=== PATIENT | male | born 1995 | race Caucasian/White ===

== ENCOUNTER 2017-01-22 12:17 | Emergency (ER) | payer MEDICAID ==
[~2017-01-22] VITALS: Ht 175.3 cm; Wt 86.9 kg
[2017-01-22 12:35] VITALS: BP 129/84
[2017-01-22] MEDS ORDERED: LIDOCAINE HCL 1% 20ML VIAL (Pyxis) INJ MC ONE (17:00)
[2017-01-22] MEDS ORDERED: TETANUS, DIPHTHERIA, PERTUSSIS VAC/PF 0.5ML (>7YR OLD) IM ONE (17:00)
[2017-01-22] MEDS ORDERED: BACITRACIN ZINC OINT UDPKT TOP ONE (17:00)
== END 2017-01-22 18:30 | disposition home or self-care (01) ==
LOC: ER 14:16
DX: L02.414 Cutaneous abscess of left upper limb (principal); F17.200 Nicotine dependence, unspecified, uncomplicated; F12.10 Cannabis abuse, uncomplicated; F15.10 Other stimulant abuse, uncomplicated; Z88.6 Allergy status to analgesic agent; Z88.0 Allergy status to penicillin
CPT/HCPCS: 10060; 90471; 90715; 99283; J3490; X7700; Z7610

== ENCOUNTER 2022-01-14 12:02 | Emergency (ER) | payer MEDICAID ==
[~2022-01-14] VITALS: Ht 175.3 cm; Wt 122.0 kg
[2022-01-14 12:09] VITALS: BP 125/95
[2022-01-14] MEDS ORDERED: ZINC OXIDE 20% OINT 30GM TOP STA (15:01)
[2022-01-14] MEDS ORDERED: ZINC113C10 TP (15:08)
[2022-01-14] MEDS ORDERED: LORAZEPAM 1MG TABLET PO ONE (15:15)
== END 2022-01-14 15:40 | disposition home or self-care (01) ==
LOC: ER 13:50
DX: L25.9 Unspecified contact dermatitis, unspecified cause (principal); F15.129 Other stimulant abuse with intoxication, unspecified; R03.0 Elevated blood-pressure reading, without diagnosis of hypertension; M79.652 Pain in left thigh; M79.651 Pain in right thigh
CPT/HCPCS: 93005; 99283

== ENCOUNTER 2022-01-16 07:32 | Inpatient (IN) | payer MEDICAID, OTHER ==
[~2022-01-16] VITALS: Ht 177.8 cm; Wt 117.5 kg
[~2022-01-16 07:32] MED LIST: ZINC113C10 TP
[2022-01-16 08:15] LABS: MEAN CORPUSCULAR HEMOGLOBIN 31.4 pg (28.0-32.0); MEAN CORPUSCULAR VOLUME 90.5 fL (80.0-94.0); MEAN PLATELET VOLUME 10.6 fl (7.4-10.4); PLATELET 204 x1000/uL (130-400); RED BLOOD CELL COUNT 5.08 mill/uL (4.7-6.1); RED CELL DISTRIBUTION WIDTH 13.8 % (11.6-14.6)
[2022-01-16 08:34] LABS: CHLORIDE 87 mEq/L (98-107); ETHANOL BLOOD < 10 mg/dL
[2022-01-16 08:57] LABS: PLATELET ESTIMATE NORMAL
[2022-01-16] MEDS ORDERED: SODIUM CHLORIDE 0.9% 1,000 ML IV ONE (11:15)
[2022-01-16] MEDS ORDERED: SODIUM BICARBONATE 8.4% 1 MEQ/ML 50ML SYR IV NR (13:15)
[2022-01-16] MEDS ORDERED: ONDANSETRON HCL 4MG/2ML INJ IV PRN (13:30)
[2022-01-16 13:58] LABS: CLARITY URINE CLOUDY (CLEAR); COLOR URINE YELLOW (YELLOW); KETONES URINE 1+ (NEGATIVE); LEUKOCYTE ESTERASE URINE TRACE (NEGATIVE); NITRITE URINE NEGATIVE (NEGATIVE); OCCULT BLOOD URINE 3+ (NEGATIVE); PROTEIN URINE 2+ (NEGATIVE); SPECIFIC GRAVITY URINE 1.018 (1.005-1.030)
[2022-01-16 14:24] LABS: *AMPHETAMINES SCREEN URINE PRESUMTIVE POSITIVE (NEGATIVE)
[2022-01-16 14:25] LABS: *BARBITURATES SCREEN URINE NEGATIVE (NEGATIVE); *BENZODIAZEPINES SCREEN URINE NEGATIVE (NEGATIVE); *COCAINE SCREEN URINE NEGATIVE (NEGATIVE); METHADONE URINE SCREEN NEGATIVE (NEGATIVE); OPIATES URINE SCREEN NEGATIVE (NEGATIVE); PHENCYCLIDINE URINE SCREEN NEGATIVE (NEGATIVE)
[2022-01-16 14:26] LABS: CANNABINOID URINE SCREEN PRESUMTIVE POSITIVE (NEGATIVE)
[2022-01-16 14:37] LABS: BG BASE EXCESS -10.4 mmol/L (-2.0-2.0); BG DEOXYHEMOGLOBIN 1.8 % (0.0-5.0); BG FRACTION INSPIRED OXYGEN 21; BG HCO3 ACT 13.6 mmol/L (22.0-26.0); BG METHEMOGLOBIN 0.4 % (0.0-1.5); BG OXYGEN SATURATION 98.2 % (92.0-98.5); BG OXYHEMOGLOBIN 97.8 % (94.0-97.0); BG PCO2 26.2 mmHg (35.0-45.0); BG PH 7.333 (7.350-7.450); BG PO2 131.9 mmHg (75.0-100.0); BG SAMPLE SITE LEFT RADIAL; BG TOTAL HEMOGLOBIN 14.9 g/dL (12.0-18.0); BG VENT MODE ROOM AIR
[2022-01-16 16:00] VITALS: BP 134/71
[2022-01-16 17:15] VITALS: BP 134/71
[2022-01-16] MEDS ORDERED: VANCOMYCIN 1,750 MG in DEXT 5% WATER 500 ML IV NR (18:00)
[2022-01-16] MEDS: NYSTATIN POWDER 15GM TOP SCH (18:25)
[2022-01-16] MEDS: SODIUM BICARBONATE 150 MEQ in DEXTROSE 5% WATER 1,000 ML IV SCH (18:26)
[2022-01-16] MEDS: CEFEPIME 500 MG in DEXTROSE 5% WATER 50 ML IV SCH (18:49)
[2022-01-16 20:00] VITALS: BP 129/69
[2022-01-17] VITALS: BP 128/69
[2022-01-17] MEDS: SODIUM BICARBONATE 150 MEQ in DEXTROSE 5% WATER 1,000 ML IV SCH ×2 (03:32→17:19)
[2022-01-17 04:00] VITALS: BP 130/72
[2022-01-17 06:48] LABS: HEMATOCRIT. 39.8 % (42.0-52.0); HEMOGLOBIN. 13.8 g/dL (14.0-18.0); MEAN CORPUSCULAR HEMOGLOBIN 30.9 pg (28.0-32.0); MEAN CORPUSCULAR VOLUME 88.9 fL (80.0-94.0); MEAN PLATELET VOLUME 10.9 fl (7.4-10.4); PLATELET 196 x1000/uL (130-400); RED BLOOD CELL COUNT 4.47 mill/uL (4.7-6.1)
[2022-01-17 06:52] LABS: CHLORIDE 89 mEq/L (98-107)
[2022-01-17 06:59] LABS: PHOSPHORUS 4.3 mg/dL (2.5-4.9)
[2022-01-17 07:50] LABS: CREATINE KINASE 18043 IU/L (39-308)
[2022-01-17 07:59] VITALS: BP 133/68
[2022-01-17] MEDS: NYSTATIN POWDER 15GM TOP SCH ×3 (08:53→17:19)
[2022-01-17 12:27] VITALS: BP 137/74
[2022-01-17] MEDS: RISPERIDONE 1MG TABLET PO SCH ×2 (14:05→20:52)
[2022-01-17] MEDS: FLUOXETINE HCL 10 MG CAPSULE PO SCH (14:05)
[2022-01-17 15:25] VITALS: BP 115/67
[2022-01-17] MEDS: CEFEPIME 500 MG in DEXTROSE 5% WATER 50 ML IV SCH (17:19)
[2022-01-17 18:48] LABS: PLATELET ESTIMATE NORMAL
[2022-01-17 20:00] VITALS: BP 153/81
[2022-01-18] VITALS (7 sets, daily range): BP systolic 116–143; BP diastolic 67–82
[2022-01-18 00:02] LABS: SODIUM URINE RANDOM < 5 mEq/L
[2022-01-18] MEDS: SODIUM BICARBONATE 150 MEQ in DEXTROSE 5% WATER 1,000 ML IV SCH (03:41)
[2022-01-18 07:27] LABS: HEMATOCRIT. 37.3 % (42.0-52.0); HEMOGLOBIN. 13.2 g/dL (14.0-18.0); MEAN CORPUSCULAR HEMOGLOBIN 31.3 pg (28.0-32.0); MEAN CORPUSCULAR VOLUME 88.7 fL (80.0-94.0); MEAN PLATELET VOLUME 9.7 fl (7.4-10.4); PLATELET 175 x1000/uL (130-400); RED BLOOD CELL COUNT 4.21 mill/uL (4.7-6.1); RED CELL DISTRIBUTION WIDTH 13.7 % (11.6-14.6)
[2022-01-18 07:33] LABS: CHLORIDE 90 mEq/L (98-107)
[2022-01-18 07:49] LABS: PHOSPHORUS 1.8 mg/dL (2.5-4.9)
[2022-01-18] MEDS: FLUOXETINE HCL 10 MG CAPSULE PO SCH (09:01)
[2022-01-18] MEDS: RISPERIDONE 1MG TABLET PO SCH ×2 (09:01→21:17)
[2022-01-18] MEDS: NYSTATIN POWDER 15GM TOP SCH ×3 (09:08→17:26)
[2022-01-18] MEDS ORDERED: POTASSIUM PHOS,M-BASIC-D-BASIC 30 MMOL in SODIUM CHLORIDE 0.9% 500 ML IV NR (11:00)
[2022-01-18] MEDS ORDERED: VANCOMYCIN 1500MG in DEXTROSE 5% WATER 250ML IV SCH (11:00)
[2022-01-18] MEDS: POTASSIUM CHLORIDE 20MEQ TABLET SR PO NR ×2 (11:00→11:05)
[2022-01-18] MEDS ORDERED: CLINDAMYCIN HCL 150MG CAPSULE PO SCH (12:00)
[2022-01-18] MEDS ORDERED: CLINDAMYCIN 300 MG in DEXTROSE 5% WATER 50 ML IV SCH (13:30)
[2022-01-18 13:55] LABS: PLATELET ESTIMATE NORMAL
[2022-01-18 14:25] LABS: CREATINE KINASE 5725 IU/L (39-308)
[2022-01-18] MEDS: CLINDAMYCIN IN 0.9 % SOD CHLOR 50 ML IV SCH ×2 (17:25→21:17)
[2022-01-18] MEDS ORDERED: VANCOMYCIN 1GM PMX (XELLIA) 200 ML IV SCH (19:00)
[2022-01-19] VITALS: BP 124/74
[2022-01-19 04:00] VITALS: BP 131/70
[2022-01-19] MEDS: CLINDAMYCIN IN 0.9 % SOD CHLOR 50 ML IV SCH ×3 (05:15→21:07)
[2022-01-19 07:20] LABS: CHLORIDE 95 mEq/L (98-107); HEMATOCRIT. 37.9 % (42.0-52.0); MEAN CORPUSCULAR HEMOGLOBIN 31.1 pg (28.0-32.0); MEAN CORPUSCULAR VOLUME 90.8 fL (80.0-94.0); MEAN PLATELET VOLUME 9.6 fl (7.4-10.4); PLATELET 197 x1000/uL (130-400); RED BLOOD CELL COUNT 4.17 mill/uL (4.7-6.1); RED CELL DISTRIBUTION WIDTH 13.8 % (11.6-14.6)
[2022-01-19 07:41] LABS: PHOSPHORUS 2.7 mg/dL (2.5-4.9)
[2022-01-19 08:03] VITALS: BP 119/66
[2022-01-19] MEDS: RISPERIDONE 1MG TABLET PO SCH ×2 (08:45→21:06)
[2022-01-19] MEDS: NYSTATIN POWDER 15GM TOP SCH ×2 (08:45→13:11)
[2022-01-19] MEDS: FLUOXETINE HCL 10 MG CAPSULE PO SCH (08:45)
[2022-01-19] MEDS ORDERED: POTASSIUM CHLORIDE 20MEQ TABLET SR PO SCH (09:45)
[2022-01-19 11:50] VITALS: BP 121/55
[2022-01-19 13:09] LABS: PLATELET ESTIMATE NORMAL
[2022-01-19 15:41] VITALS: BP 115/71
[2022-01-19] MEDS: NYSTATIN/TRIAMCIN CREAM 15GM TOP SCH (17:47)
[2022-01-19 20:00] VITALS: BP 124/68
[2022-01-20] VITALS: BP 129/80
[2022-01-20 04:00] VITALS: BP 115/64
[2022-01-20] MEDS: CLINDAMYCIN IN 0.9 % SOD CHLOR 50 ML IV SCH ×3 (05:27→21:57)
[2022-01-20 07:16] LABS: HEMATOCRIT. 37.5 % (42.0-52.0); HEMOGLOBIN. 13.1 g/dL (14.0-18.0); MEAN CORPUSCULAR HEMOGLOBIN 31.4 pg (28.0-32.0); MEAN CORPUSCULAR VOLUME 89.7 fL (80.0-94.0); MEAN PLATELET VOLUME 9.4 fl (7.4-10.4); PLATELET 224 x1000/uL (130-400); RED BLOOD CELL COUNT 4.18 mill/uL (4.7-6.1); RED CELL DISTRIBUTION WIDTH 13.4 % (11.6-14.6)
[2022-01-20 07:30] LABS: CHLORIDE 98 mEq/L (98-107)
[2022-01-20 07:40] LABS: PHOSPHORUS 3.1 mg/dL (2.5-4.9)
[2022-01-20 08:00] VITALS: BP 118/58
[2022-01-20] MEDS: NYSTATIN/TRIAMCIN CREAM 15GM TOP SCH ×3 (09:59→18:26)
[2022-01-20] MEDS: FLUOXETINE HCL 10 MG CAPSULE PO SCH (09:59)
[2022-01-20] MEDS: RISPERIDONE 1MG TABLET PO SCH ×2 (09:59→21:57)
[2022-01-20] MEDS ORDERED: POTASSIUM CHLORIDE 20MEQ TABLET SR PO NR (11:00)
[2022-01-20 12:00] VITALS: BP 117/60
[2022-01-20 12:56] LABS: PLATELET ESTIMATE NORMAL
[2022-01-20 16:00] VITALS: BP 115/65
[2022-01-20 19:49] VITALS: BP 116/62
[2022-01-20] MEDS: ACETAMINOPHEN 325MG TABLET PO PRN (21:57)
[2022-01-21] VITALS: BP 110/62
[2022-01-21 04:00] VITALS: BP 121/70
[2022-01-21] MEDS: CLINDAMYCIN IN 0.9 % SOD CHLOR 50 ML IV SCH ×2 (05:07→13:18)
[2022-01-21 05:53] LABS: CHLORIDE 100 mEq/L (98-107)
[2022-01-21 05:59] LABS: PHOSPHORUS 3.4 mg/dL (2.5-4.9)
[2022-01-21 07:17] LABS: HEMOGLOBIN. 13.6 g/dL (14.0-18.0)
[2022-01-21 07:19] LABS: HEMATOCRIT. 40.5 % (42.0-52.0); MEAN CORPUSCULAR HEMOGLOBIN 31.2 pg (28.0-32.0); MEAN CORPUSCULAR VOLUME 93.1 fL (80.0-94.0); RED BLOOD CELL COUNT 4.35 mill/uL (4.7-6.1); RED CELL DISTRIBUTION WIDTH 13.7 % (11.6-14.6)
[2022-01-21 08:00] VITALS: BP 120/70
[2022-01-21] MEDS: RISPERIDONE 1MG TABLET PO SCH ×2 (08:28→21:43)
[2022-01-21] MEDS: FLUOXETINE HCL 10 MG CAPSULE PO SCH (08:29)
[2022-01-21] MEDS: NYSTATIN/TRIAMCIN CREAM 15GM TOP SCH ×3 (08:29→17:52)
[2022-01-21 09:26] LABS: PLATELET 244 x1000/uL (130-400)
[2022-01-21 09:29] LABS: PLATELET ESTIMATE NORMAL
[2022-01-21 12:00] VITALS: BP 113/65
[2022-01-21 16:00] VITALS: BP 123/67
[2022-01-21] MEDS: CLINDAMYCIN 900 MG PREMIX 50 ML IV SCH (21:43)
[2022-01-22] VITALS (7 sets, daily range): BP systolic 110–127; BP diastolic 51–65
[2022-01-22 06:21] LABS: HEMATOCRIT. 38.8 % (42.0-52.0); HEMOGLOBIN. 13.3 g/dL (14.0-18.0); MEAN CORPUSCULAR HEMOGLOBIN 31.2 pg (28.0-32.0); MEAN CORPUSCULAR VOLUME 91.2 fL (80.0-94.0); MEAN PLATELET VOLUME 8.7 fl (7.4-10.4); PLATELET 292 x1000/uL (130-400); RED BLOOD CELL COUNT 4.25 mill/uL (4.7-6.1); RED CELL DISTRIBUTION WIDTH 13.1 % (11.6-14.6)
[2022-01-22] MEDS: CLINDAMYCIN 900 MG PREMIX 50 ML IV SCH ×3 (06:24→21:45)
[2022-01-22 06:40] LABS: CHLORIDE 103 mEq/L (98-107)
[2022-01-22 06:51] LABS: PHOSPHORUS 3.6 mg/dL (2.5-4.9)
[2022-01-22] MEDS: FLUOXETINE HCL 10 MG CAPSULE PO SCH (08:55)
[2022-01-22] MEDS: RISPERIDONE 1MG TABLET PO SCH ×2 (08:55→21:44)
[2022-01-22] MEDS: NYSTATIN/TRIAMCIN CREAM 15GM TOP SCH ×3 (08:56→16:05)
[2022-01-22 16:29] LABS: PLATELET ESTIMATE NORMAL
[2022-01-23 03:52] VITALS: BP 116/62
[2022-01-23] MEDS: CLINDAMYCIN 900 MG PREMIX 50 ML IV SCH ×3 (05:28→21:40)
[2022-01-23 06:15] LABS: HEMOGLOBIN. 13.3 g/dL (14.0-18.0); MEAN CORPUSCULAR HEMOGLOBIN 31.1 pg (28.0-32.0); MEAN CORPUSCULAR VOLUME 91.2 fL (80.0-94.0); MEAN PLATELET VOLUME 8.9 fl (7.4-10.4); PLATELET 293 x1000/uL (130-400); RED BLOOD CELL COUNT 4.28 mill/uL (4.7-6.1); RED CELL DISTRIBUTION WIDTH 13.3 % (11.6-14.6)
[2022-01-23 07:18] LABS: CHLORIDE 105 mEq/L (98-107)
[2022-01-23 07:25] LABS: PHOSPHORUS 3.7 mg/dL (2.5-4.9)
[2022-01-23 07:42] VITALS: BP 108/63
[2022-01-23] MEDS: RISPERIDONE 1MG TABLET PO SCH ×2 (08:34→21:40)
[2022-01-23] MEDS: FLUOXETINE HCL 10 MG CAPSULE PO SCH (08:34)
[2022-01-23] MEDS: NYSTATIN/TRIAMCIN CREAM 15GM TOP SCH ×3 (08:35→17:10)
[2022-01-23 11:45] VITALS: BP 118/71
[2022-01-23 12:40] LABS: PLATELET ESTIMATE NORMAL
[2022-01-23 15:40] VITALS: BP 109/63
[2022-01-23 20:00] VITALS: BP 113/65
[2022-01-24] VITALS: BP 112/72
[2022-01-24 04:00] VITALS: BP 109/68
[2022-01-24] MEDS: CLINDAMYCIN 900 MG PREMIX 50 ML IV SCH ×3 (05:18→22:17)
[2022-01-24 06:45] LABS: BASOPHILS % 0.3 % (0.0-2.0); EOSINOPHILS % 3.1 % (0.0-5.0); HEMATOCRIT. 40.4 % (42.0-52.0); HEMOGLOBIN. 13.8 g/dL (14.0-18.0); LYMPHOCYTES % 23.9 % (20.0-50.0); MEAN CORPUSCULAR HEMOGLOBIN 31.1 pg (28.0-32.0); MEAN CORPUSCULAR VOLUME 91.4 fL (80.0-94.0); MEAN PLATELET VOLUME 8.7 fl (7.4-10.4); MONOCYTES % 10.7 % (2.0-8.0); PLATELET 275 x1000/uL (130-400); RED BLOOD CELL COUNT 4.42 mill/uL (4.7-6.1); RED CELL DISTRIBUTION WIDTH 13.4 % (11.6-14.6)
[2022-01-24 07:04] LABS: CHLORIDE 107 mEq/L (98-107)
[2022-01-24 07:14] LABS: PHOSPHORUS 3.9 mg/dL (2.5-4.9)
[2022-01-24 08:00] VITALS: BP 110/71
[2022-01-24] MEDS: ACETAMINOPHEN 325MG TABLET PO PRN (09:13)
[2022-01-24] MEDS: RISPERIDONE 1MG TABLET PO SCH ×2 (09:14→22:17)
[2022-01-24] MEDS: NYSTATIN/TRIAMCIN CREAM 15GM TOP SCH ×3 (09:14→17:34)
[2022-01-24] MEDS: FLUOXETINE HCL 10 MG CAPSULE PO SCH (09:14)
[2022-01-24 12:00] VITALS: BP 116/66
[2022-01-24 16:00] VITALS: BP 112/61
[2022-01-24 20:00] VITALS: BP 114/58
[2022-01-24 20:53] LABS: CREATINE KINASE 204 IU/L (39-308)
[2022-01-25] VITALS: BP 113/77
[2022-01-25 04:00] VITALS: BP 145/81
[2022-01-25] MEDS: CLINDAMYCIN 900 MG PREMIX 50 ML IV SCH ×2 (05:10→13:44)
[2022-01-25 06:38] LABS: BASOPHILS % 0.3 % (0.0-2.0); EOSINOPHILS % 2.2 % (0.0-5.0); HEMATOCRIT. 39.3 % (42.0-52.0); HEMOGLOBIN. 13.2 g/dL (14.0-18.0); LYMPHOCYTES % 22.8 % (20.0-50.0); MEAN CORPUSCULAR HEMOGLOBIN 30.6 pg (28.0-32.0); MEAN CORPUSCULAR VOLUME 90.7 fL (80.0-94.0); MEAN PLATELET VOLUME 8.3 fl (7.4-10.4); NEUTROPHILS % 63.7 % (40.0-76.0); PLATELET 275 x1000/uL (130-400); RED BLOOD CELL COUNT 4.33 mill/uL (4.7-6.1); RED CELL DISTRIBUTION WIDTH 13.4 % (11.6-14.6)
[2022-01-25 07:10] LABS: CHLORIDE 108 mEq/L (98-107)
[2022-01-25 07:26] LABS: PHOSPHORUS 3.7 mg/dL (2.5-4.9)
[2022-01-25 08:00] VITALS: BP 102/58
[2022-01-25] MEDS: FLUOXETINE HCL 10 MG CAPSULE PO SCH (09:12)
[2022-01-25] MEDS: RISPERIDONE 1MG TABLET PO SCH (09:12)
[2022-01-25] MEDS: NYSTATIN/TRIAMCIN CREAM 15GM TOP SCH ×3 (09:12→17:45)
[2022-01-25 12:00] VITALS: BP 107/64
[2022-01-25 16:00] VITALS: BP 106/62
[2022-01-25 20:24] VITALS: BP 129/60
== END 2022-01-25 21:10 | DRG 720 ==
LOC: ER 07:48 → 6WST 12:29
PROVIDERS: ADMIT Internal Medicine; ATTEND Internal Medicine
DX: A41.9 Sepsis, unspecified organism (principal); N17.0 Acute kidney failure with tubular necrosis; G92.9 Unspecified toxic encephalopathy; E87.2 Acidosis; E87.1 Hypo-osmolality and hyponatremia; B36.8 Other specified superficial mycoses; M62.82 Rhabdomyolysis; F15.129 Other stimulant abuse with intoxication, unspecified; E86.0 Dehydration; E87.6 Hypokalemia; R74.01 Elevation of levels of liver transaminase levels; F12.90 Cannabis use, unspecified, uncomplicated; Z60.2 Problems related to living alone; Z20.822 Contact with and (suspected) exposure to COVID-19; R79.89 Other specified abnormal findings of blood chemistry; R45.851 Suicidal ideations; Z59.00 Homelessness unspecified; Z88.6 Allergy status to analgesic agent; Z88.0 Allergy status to penicillin; Z79.899 Other long term (current) drug therapy; Z71.51 Drug abuse counseling and surveillance of drug abuser; Q74.2 Other congenital malformations of lower limb(s), including pelvic girdle; F99 Mental disorder, not otherwise specified; L03.116 Cellulitis of left lower limb; L03.115 Cellulitis of right lower limb
CPT/HCPCS: 36415; 36600; 71045; 76770; 80048; 80053; 80202; 80305; 80320; 81003; 82040; 82375; 82533; 82550; 82805; 82962; 83605; 83735; 83935; 84100; 84134; 84145; 84300; 84439; 84443; 85025; 99285; C1893; J0692; J3370; J3490; J7030; J7040; J7060; J7070; U0003; U0005; A4315; G0480

== ENCOUNTER 2023-12-28 17:46 | Emergency (ER) | payer OTHER ==
[~2023-12-28] VITALS: Ht 175.3 cm; Wt 113.4 kg
[2023-12-28 18:01] VITALS: O2SAT 100
[2023-12-28] MEDS: IBUPROFEN 400MG TABLET PO NR (20:00)
[2023-12-28] MEDS ORDERED: IBUPROFEN 800MG TABLET PO ONE (20:00)
[2023-12-28 20:14] LABS: BASOPHILS % 0.1 % (0.0-2.0); EOSINOPHILS % 0.9 % (0.0-5.0); HEMATOCRIT. 38.2 % (42.0-52.0); HEMOGLOBIN. 12.8 g/dL (14.0-18.0); LYMPHOCYTES % 14.5 % (20.0-50.0); MEAN CORPUSCULAR HEMOGLOBIN 31.8 pg (28.0-32.0); MEAN CORPUSCULAR HGB CONC 33.5 g/dL (31.0-37.0); MEAN CORPUSCULAR VOLUME 94.9 fL (80.0-94.0); MEAN PLATELET VOLUME 9.5 fl (7.4-10.4); MONOCYTES % 9.6 % (2.0-8.0); NEUTROPHILS % 74.9 % (40.0-76.0); PLATELET 206 x1000/uL (130-400); RED BLOOD CELL COUNT 4.02 mill/uL (4.7-6.1); RED CELL DISTRIBUTION WIDTH 13.6 % (11.6-14.6); WHITE BLOOD COUNT 11.4 x1000/uL (4.5-11.0)
[2023-12-28 20:39] LABS: ALANINE AMINOTRANSFERASE 25 IU/L (10-49); ALBUMIN 4.5 g/dL (3.2-4.8); ASPARTATE AMINOTRANSFERASE 75 IU/L (<34); BILIRUBIN TOTAL 1.1 mg/dL (0.1-1.0); CALCIUM 8.6 mg/dL (8.7-10.4); CARBON DIOXIDE 24 mEq/L (21-32); CHLORIDE 102 mEq/L (98-107); CREATINE KINASE 2790 IU/L (46-171); CREATININE 0.8 mg/dL (0.6-1.3); GLUCOSE 81 mg/dL (70-105); POTASSIUM 3.6 mEq/L (3.5-5.1); PROTEIN TOTAL 7.9 g/dL (6.0-8.3); SODIUM 133 mEq/L (136-145); UREA NITROGEN BLOOD 13 mg/dL (9-23)
[2023-12-29] MEDS: SODIUM CHLORIDE 0.9% 1,000 ML IV ONE (00:14)
[2023-12-29 02:34] VITALS: BP 136/77; PULSE 77; RESP 13; TEMP 98.6
== END 2023-12-29 02:52 | disposition short-term general hospital (02) ==
LOC: ER 17:46
DX: M62.82 Rhabdomyolysis (principal); F15.10 Other stimulant abuse, uncomplicated; Z88.0 Allergy status to penicillin
CPT/HCPCS: 99285; 93970; 80053; 82550; 85025; 36415; 73590; 96360; J7030

== ENCOUNTER 2024-02-06 14:24 | Emergency (ER) | payer OTHER ==
[~2024-02-06] VITALS: Ht 182.9 cm; Wt 100.0 kg
[2024-02-06] MEDS: DIPHENHYDRAMINE 50MG/ML VIAL IM STA (14:28)
[2024-02-06] MEDS: HALOPERIDOL LACTATE 5MG/ML VIAL IM STA (14:28)
[2024-02-06] MEDS: MIDAZOLAM HCL 2 MG/2 ML VIAL IM ONE (14:30)
[2024-02-06 15:21] LABS: BASOPHILS % 0.4 % (0.0-2.0); EOSINOPHILS % 1.2 % (0.0-5.0); HEMOGLOBIN. 13.6 g/dL (14.0-18.0); LYMPHOCYTES % 17.4 % (20.0-50.0); MEAN CORPUSCULAR HEMOGLOBIN 31.8 pg (28.0-32.0); MEAN CORPUSCULAR HGB CONC 33.9 g/dL (31.0-37.0); MEAN CORPUSCULAR VOLUME 93.8 fL (80.0-94.0); MEAN PLATELET VOLUME 8.7 fl (7.4-10.4); MONOCYTES % 6.3 % (2.0-8.0); NEUTROPHILS % 74.7 % (40.0-76.0); PLATELET 210 x1000/uL (130-400); RED BLOOD CELL COUNT 4.27 mill/uL (4.7-6.1); RED CELL DISTRIBUTION WIDTH 13.9 % (11.6-14.6); WHITE BLOOD COUNT 5.1 x1000/uL (4.5-11.0)
[2024-02-06 15:26] LABS: CHLORIDE 108 mEq/L (98-107); POTASSIUM 4.2 mEq/L (3.5-5.1); SODIUM 141 mEq/L (136-145)
[2024-02-06 15:27] LABS: CALCIUM 8.8 mg/dL (8.7-10.4); CARBON DIOXIDE 23 mEq/L (21-32)
[2024-02-06 15:32] LABS: CLARITY URINE CLEAR (CLEAR); COLOR URINE YELLOW (YELLOW); CREATININE 1.2 mg/dL (0.6-1.3); ETHANOL BLOOD 38 mg/dL (<10); GLUCOSE 71 mg/dL (70-105); GLUCOSE URINE NEGATIVE (NEGATIVE); KETONES URINE TRACE (NEGATIVE); LEUKOCYTE ESTERASE URINE NEGATIVE (NEGATIVE); NITRITE URINE NEGATIVE (NEGATIVE); OCCULT BLOOD URINE TRACE (NEGATIVE); PROTEIN URINE TRACE (NEGATIVE); SPECIFIC GRAVITY URINE 1.028 (1.005-1.030); UREA NITROGEN BLOOD 19 mg/dL (9-23)
[2024-02-06 15:34] LABS: ACETAMINOPHEN < 2 ug/mL (10-30); ALANINE AMINOTRANSFERASE 26 IU/L (10-49); ALBUMIN 4.1 g/dL (3.2-4.8); ASPARTATE AMINOTRANSFERASE 61 IU/L (<34); BILIRUBIN TOTAL 0.5 mg/dL (0.1-1.0); PROTEIN TOTAL 7.4 g/dL (6.0-8.3)
[2024-02-06 15:43] LABS: WBC URINE 0-2 /hpf (0-2)
[2024-02-06 15:44] LABS: BACTERIA URINE NONE SEEN; SQUAMOUS EPITHELIAL CELL URINE RARE /lpf (RARE/1+)
[2024-02-06 15:47] LABS: *AMPHETAMINES SCREEN URINE PRESUMPTIVE POSITIVE (NEGATIVE); *BARBITURATES SCREEN URINE NEGATIVE (NEGATIVE); *BENZODIAZEPINES SCREEN URINE NEGATIVE (NEGATIVE); *COCAINE SCREEN URINE NEGATIVE (NEGATIVE); CANNABINOID URINE SCREEN PRESUMPTIVE POSITIVE (NEGATIVE); ECSTASY MDMA SCREEN URINE CONF.TEST INDICATED (NEGATIVE); METHADONE URINE SCREEN NEGATIVE (NEGATIVE); OPIATES URINE SCREEN NEGATIVE (NEGATIVE); PHENCYCLIDINE URINE SCREEN NEGATIVE (NEGATIVE)
[2024-02-06 15:52] VITALS: O2SAT 99
[2024-02-06 19:05] VITALS: BP 150/90; PULSE 80; RESP 15; TEMP 98
== END 2024-02-06 19:09 | disposition home or self-care (01) ==
LOC: ER 14:24
DX: R41.82 Altered mental status, unspecified (principal); T43.655A Adverse effect of methamphetamines, initial encounter; R45.1 Restlessness and agitation; Z20.822 Contact with and (suspected) exposure to COVID-19; Y92.89 Other specified places as the place of occurrence of the external cause
CPT/HCPCS: 80053; 80305; 81003; 80307; 80329; 80320; 85025; 36415; 93005; 96372; 99291; 87426; J1200; J1630; J2250; G0480